=== PATIENT | female | born 1990 | race African-American/Black ===

== ENCOUNTER 2017-01-30 18:03 | Emergency (ER) | payer MEDICAID ==
[~2017-01-30] VITALS: Ht 157.5 cm; Wt 90.7 kg
[~2017-01-30 18:03] MED LIST: ACETAMINOPHEN-1 EAC1 ORAL; AMOXICILLIN500 MG ORAL; IBUPROFEN800 M1 PO; IRON159 MG PO; LIDOCAINE VISCO20 ML PO; PREDNISOLON5 MG/5 M2 PO
[2017-01-30 19:00] LABS: APPEARANCE,URINE CLEAR; KETONES,URINE NEGATIVE (NEGATIVE); LEUKOCYTE ESTERASE ,URINE NEGATIVE (NEGATIVE); NITRITE,URINE NEGATIVE (NEGATIVE); PH,URINE 6 (4.5-8.0); PROTEIN,URINE NEGATIVE (NEGATIVE); UROBILINOGEN,URINE NORMAL MG/DL (0.0-1.0)
[2017-01-30] MEDS ORDERED: MIRALAX119 GM PO (19:43)
[2017-01-30] MEDS ORDERED: METAMUCIL POWD575 GM PO (19:43)
[2017-01-30 19:56] VITALS: BP 114/80
[2017-01-30 19:57] VITALS: BP 114/80
--- NOTE | 2017-01-30 20:47 | Emergency Room Report ---
History of Present Illness General Chief Complaint: Abdominal Pain Source: Patient Present Illness HPI The patient is a 26 old female presenting for abdominal pain. She states that this began yesterday. She has been having constipation for the past week. She took a laxative yesterday and had a bowel movement today which was painful. Abdominal pain has continued it as an 8/10 dull ache primarily to the left lower abdomen. No known provoking or relieving factors. She denies other symptoms including nausea, vomiting, fever, chills, melena, hematochezia, dysuria, vaginal discharge Allergies: Coded Allergies: ACETAMINOPHEN (Verified Adverse Reaction, Intermediate, 08/23/14) HYDROCODONE (Verified Adverse Reaction, Intermediate, 08/23/14) Patient History Past Medical History: see triage record Pertinent Family History: none Now: No Reviewed Nursing Documentation: PMH: Agreed, PSxH: Agreed Review of Systems All Other Systems: negative except mentioned in HPI Physical Exam Vital Signs Date Time Temp Pulse Resp B/P (MAP) Pulse Ox O2 Delivery O2 Flow Rate FiO2 01/30/17 18:08 98.1 84 20 121/77 99 Room Air Sp02 EP Interpretation: reviewed, normal General Appearance: no apparent distress, alert, GCS 15, non-toxic Head: normocephalic, atraumatic Eyes: bilateral eye normal inspection, bilateral eye PERRL ENT: hearing grossly normal, normal pharynx, no angioedema, normal voice Neck: full range of motion, supple/symm/no masses Respiratory: chest non-tender, lungs clear, normal breath sounds, speaking full sentences Cardiovascular #1: regular rate, rhythm, no edema Gastrointestinal: normal bowel sounds, soft, non-distended, no guarding, no rebound, tenderness - LLQ Genitourinary: normal inspection, no CVA tenderness Musculoskeletal: back normal, gait/station normal, normal range of motion, non- tender Neurologic: alert, oriented x3, responsive, motor strength/tone normal, sensory intact, speech normal Psychiatric: judgement/insight normal, memory normal, mood/affect normal, no suicidal/homicidal ideation Skin: normal color, no rash, warm/dry, well hydrated Lymphatic: no adenopathy Medical Decision Making PA Attestation Dr. Ruiz is my supervising physician. Patient management was discussed with my supervising physician Diagnostic Impression: Primary Impression: Constipation Qualified Codes: K59.00 - Constipation, unspecified ER Course The patient is a 26 old female presenting for abdominal pain. Differential diagnoses considered include but not limited to Constipation, UTI, appendicitis, among others Physical exam: Afebrile. No apparent distress Abdomen is soft. There is tenderness to palpation over the left lower quadrant and suprapubic region. No right lower courted tenderness. No guarding. Nondistended. No CVA tenderness Urinalysis is unremarkable The patient will be discharged home and treated for constipation. ER precautions are given Laboratory Tests Test 01/30/17 18:35 Urine Color Yellow Urine Appearance Clear Urine pH 6 (4.5-8.0) Urine Specific [place] 1.025 (1.005-1.035) Urine Protein Negative (NEGATIVE) Urine Glucose (UA) Negative (NEGATIVE) Urine Ketones Negative (NEGATIVE) Urine Occult Blood Negative (NEGATIVE) Urine Nitrite Negative (NEGATIVE) Urine Bilirubin Negative (NEGATIVE) Urine Urobilinogen Normal MG/DL (0.0-1.0) Urine Leukocyte Esterase Negative (NEGATIVE) Urine HCG, Qualitative Negative Lab Results Impression Urinalysis is unremarkable Other X-Ray Diagnostic Results Other X-Ray Diagnostic Results : X-Ray ordered: abd Xray # of Views/Limited Vs Complete: 2 View Indication: Pain EP Interpretation: Yes PA Xray: Interpretation reviewed, by supervising MD, and agrees with findings. Interpretation: no dislocation, no soft tissue swelling, no fractures Impression: No acute disease Electronically Signed by: Jason Lynn PA-C Last Vital Signs Date Time Temp Pulse Resp B/P (MAP) Pulse Ox O2 Delivery O2 Flow Rate FiO2 01/30/17 19:57 98.1 86 20 114/80 99 Room Air Status: improved Disposition: HOME, SELF-CARE Condition: Improved Scripts Psyllium Husk (with Sugar) (METAMUCIL POWDER) 575 Gm Powder 1 TBS PO DAILY, #575 GM Prov: JASON LYNN P.A. 01/30/17 Polyethylene Glycol 3350 (MIRALAX) 119 Gm Powder 17 GM PO DAILY, #119 GM Prov: TERZIANJASON P.A. 01/30/17 Patient Instructions: Constipation, Adult, Abdominal Pain, Adult Additional Instructions: I discussed my findings with the patient. All questions and concerns have been answered. Treatment and medication compliance have been addressed. I advised the patient that they need to follow up with PMD in 3-5 days. Return to ED if symptoms worsen, new symptoms arise, or if needed for any reason. Patient verbalized understanding of discharge instructions. JASON LYNN Jan 30, 2017 20:47
--- NOTE | 2017-01-31 09:49 | Diagnostic Imaging Report ---
Indication: PAIN Technique: Supine view of the abdomen Comparison: none Findings: Body habitus limits evaluation. Unremarkable bowel gas pattern. No unusual masses or calcifications. Impression: Negative
== END 2017-01-30 19:57 | disposition home or self-care (01) ==
LOC: EMR 18:30
DX: K59.00 Constipation, unspecified (principal); Z88.6 Allergy status to analgesic agent
CPT/HCPCS: 74000; 81003; 81025; 99284

== ENCOUNTER 2018-04-16 17:54 | Emergency (ER) | payer MEDICAID ==
[~2018-04-16] VITALS: Ht 157.5 cm; Wt 81.6 kg
[~2018-04-16 17:54] MED LIST changes: +METAMUCIL POWD575 GM PO; +MIRALAX119 GM PO
--- NOTE | 2018-04-16 18:20 | NUR ---
ED Nurse Note: Pt came in due to upper abd pain with N/V/D since last night after eating at [employer]. Pt also c/o slight dizziness. Pt is AAO x4, ambulatory with no respiratory. Family member at the bed side.
[2018-04-16] MEDS ORDERED: Acetaminophen 650 MG SUPP RECTAL ONE (18:30)
[2018-04-16] MEDS ORDERED: Acetaminophen (Non formulary) 100 ML IV ONE (18:30)
--- NOTE | 2018-04-16 18:35 | NUR ---
ED Nurse Note: Blood collected and sent.
--- NOTE | 2018-04-16 18:36 | Emergency Room Report ---
History of Present Illness General Chief Complaint: Abdominal Pain Source: Patient Present Illness HPI 27-year-old female with past medical history of gastritis here complaining of one day of abdominal pain, nausea, vomiting, and multiple bouts of diarrhea after eating lobster last night. Patient reports multiple bouts of vomiting, nonbloody, having chills and body aches. Denies any blood in stool. Patient vomitus present in the room with her and reports that she also has the same food and presents with similar symptoms. Patient has not been able to keep in oral hydration. Complains of acid reflux exacerbation of her gastritis. Denies chest pain, SOB, palpitation, dysuria, dizziness and headache. She has not taken any medication for nausea. Denies LOC denies alcohol ingestion, drug use, cigarette smoke and started any new medication.denies recent travel. she is rating the pain epigastric and 5 out of 10, intermittent without radiation. Allergies: Coded Allergies: ACETAMINOPHEN (Verified Adverse Reaction, Intermediate, 08/23/14) HYDROCODONE (Verified Adverse Reaction, Intermediate, 08/23/14) Patient History Past Medical History: see triage record Past Surgical History: unable to obtain Pertinent Family History: none Last Menstrual Period: 04/13/18 Now: No Immunizations: UTD Reviewed Nursing Documentation: PMH: Agreed; PSxH: Agreed Nursing Documentation-PMH Past Medical History: No History, Except For Review of Systems All Other Systems: negative except mentioned in HPI Physical Exam Vital Signs Date Time Temp Pulse Resp B/P (MAP) Pulse Ox O2 Delivery O2 Flow Rate FiO2 04/16/18 18:10 99.9 69 20 88/47 98 Simple Mask Sp02 EP Interpretation: reviewed, normal General Appearance: alert, GCS 15, non-toxic, mild distress Head: normocephalic, atraumatic Eyes: bilateral eye normal inspection, bilateral eye PERRL ENT: normal ENT inspection, normal pharynx, no angioedema Neck: normal inspection, full range of motion, supple Respiratory: normal inspection, chest non-tender, normal breath sounds, no rhonchi, no wheezing Cardiovascular #1: normal inspection, normal peripheral pulses, no edema, no murmur, normal capillary refill Gastrointestinal: normal bowel sounds, non tender, soft, no mass, no organomegaly, no peritonitis, no bruit, non-distended, no guarding, no pulsatile mass, other - negative McBurney's, Woods's, Rovsing's Rectal: deferred Genitourinary: no CVA tenderness Musculoskeletal: normal inspection, back normal Neurologic: normal inspection, alert, oriented x3 Psychiatric: normal inspection, judgement/insight normal, memory normal Skin: normal inspection, normal color, no rash, warm/dry Lymphatic: normal inspection, no adenopathy Medical Decision Making PA Attestation Diagnosis and treatment reviewed and discussed with supervising physician Dr. Lombardo Diagnostic Impression: Primary Impression: Food poisoning Additional Impressions: Dehydration Gastritis ER Course 27-year-old female with past medical history of gastritis here complaining of one day of abdominal pain, nausea, vomiting, and multiple bouts of diarrhea after eating lobster last night. Patient reports multiple bouts of vomiting, nonbloody, having chills and body aches. Denies any blood in stool. Patient vomitus present in the room with her and reports that she also has the same food and presents with similar symptoms. Patient has not been able to keep in oral hydration. Complains of acid reflux exacerbation of her gastritis. Denies chest pain, SOB, palpitation, dysuria, dizziness and headache. She has not taken any medication for nausea. Denies LOC denies alcohol ingestion, drug use, cigarette smoke and started any new medication.denies recent travel. she is rating the pain epigastric and 5 out of 10, intermittent without radiation. Ddx considered but are not limited to viral gastroentirits, bacterial gastroentritis, gastritis , dehydration secondary to food poisoning Vital signs: are WNL, pt. is afebrile H&PE are most consistent with dehydration secodnary to food poisening , gastritis ORDERS: NS 1000mL bolus, IV prevacid, zofran, CBC, CMp, UA, urine preg, tox screen stool cx, zofran, omperazole, ED INTERVENTIONS: IV NS bolus, zofran, prevacid DISCHARGE: At this time pt. is stable for d/c to home. Will provide printed patient care instructions, and any necessary prescriptions. Care plan and follow up instructions have been discussed with the patient prior to discharge. BRAT diet advised. Last Vital Signs Date Time Temp Pulse Resp B/P (MAP) Pulse Ox O2 Delivery O2 Flow Rate FiO2 04/16/18 18:10 99.9 69 20 88/47 98 Simple Mask Disposition: HOME, SELF-CARE Condition: Stable Patient Instructions: Abdominal Pain, Adult, Dehydration, Adult, [id number], Food Poisoning Additional Instructions: oral hydration especially electrolytes water encouraged take medication as directed, if stool culture is positive for bacteria we will call in antibiotics. BRAT diet advised banana rice toast applesauce avoids eating food from restaurant for the next couple days, avoid spicy ascitic fluid. Aria [place] Apr 16, 2018 18:36
[2018-04-16 18:48] VITALS: BP_SYST 108; BP_SYST 111; BP_DIAS 38; BP_DIAS 78
--- NOTE | 2018-04-16 19:04 | NUR ---
HAND-OFF: Report given to Tanya BERGMAN.
[2018-04-16 19:14] LABS: HEMATOCRIT 38.1 % (37.0-47.0); HEMOGLOBIN 12.2 G/DL (12.0-16.0); MEAN CORPUSCULAR VOLUME 83 FL (80-99); PLATELET COUNT 293 K/UL (150-450); RED BLOOD COUNT 4.58 M/UL (4.20-5.40); RED CELL DISTRIBUTION WIDTH 12.4 % (11.6-14.8); WHITE BLOOD COUNT 11.1 K/UL (4.8-10.8)
[2018-04-16 19:27] LABS: APPEARANCE,URINE CLEAR; BILIRUBIN, URINE NEGATIVE (NEGATIVE); COLOR,URINE PALE YELLOW; GLUCOSE, URINE (UA) NEGATIVE (NEGATIVE); KETONES,URINE NEGATIVE (NEGATIVE); LEUKOCYTE ESTERASE ,URINE NEGATIVE (NEGATIVE); NITRITE,URINE NEGATIVE (NEGATIVE); PH,URINE 6 (4.5-8.0); PROTEIN,URINE 1+ (NEGATIVE); UROBILINOGEN,URINE NORMAL MG/DL (0.0-1.0)
[2018-04-16 19:38] LABS: ANION GAP 10 mmol/L (5-15); BLOOD UREA NITROGEN 12 mg/dL (7-18); CALCIUM 8.8 MG/DL (8.5-10.1); CARBON DIOXIDE 25 MMOL/L (21-32); CHLORIDE 104 MMOL/L (98-107); POTASSIUM 3.9 MMOL/L (3.5-5.1); SODIUM 139 MMOL/L (136-145)
[2018-04-16 19:44] LABS: ALANINE AMINOTRANSFERASE 33 U/L (12-78); ALBUMIN 3.8 G/DL (3.4-5.0); ALKALINE PHOSPHATASE 72 U/L (46-116); ASPARTATE AMINO TRANSFERASE 25 U/L (15-37); BILIRUBIN,TOTAL 0.4 MG/DL (0.2-1.0)
[2018-04-16] MEDS ORDERED: OMEPRAZOLE20 M2 ORAL (20:14)
[2018-04-16] MEDS ORDERED: ZOFRAN4 M3 ORAL (20:14)
[2018-04-16 20:20] VITALS: BP 113/73
--- NOTE | 2018-04-16 20:20 | NUR ---
ED Nurse Note: Pt has seen by Aria/ANUSHKA, All orders carried out. Pt is ready for discharge. D/C instruction and prescription given to Pt and verbalized understanding. IV/ID band removed. Pt d/c from ED with steady gait and all her belongings.
== END 2018-04-16 20:20 | disposition home or self-care (01) ==
LOC: EMR 18:31
DX: T62.91XA Toxic effect of unspecified noxious substance eaten as food, accidental (unintentional), initial encounter (principal); Y92.9 Unspecified place or not applicable; E86.0 Dehydration; K29.70 Gastritis, unspecified, without bleeding; R11.2 Nausea with vomiting, unspecified; R10.9 Unspecified abdominal pain; Z88.6 Allergy status to analgesic agent; Z88.5 Allergy status to narcotic agent
CPT/HCPCS: 36415; 80053; 80307; 81001; 81025; 85025; 86710; 96361; 96372; 96374; 99284; J2405; S0028